=== PATIENT | female | born 1955 | race Hispanic/Latino ===

== ENCOUNTER 2017-10-18 12:40 | Outpatient (CLI) | payer OTHER ==
--- NOTE | 2017-10-20 15:10 | Vascular Lab Report ---
Right Lower Extremity Venous Duplex Study: Reason for Exam: Pain and swelling of the right lower extremity. Comments on the Right: All veins visualized are freely compressible without evidence of internal echogenicity. Flow is spontaneous and phasic throughout. No evidence of acute or chronic thrombus is seen in any of the vessels visualized. A soft tissue change in the right knee area is consistent with a Oliveros's cyst. Comments on the Left: A limited duplex study was done of the proximal veins of the left lower extremity. All veins visualized are freely compressible without evidence of internal echogenicity. Flow is spontaneous and phasic throughout. No evidence of acute or chronic thrombus is seen in any of the vessels visualized. Impression: No evidence of acute or chronic deep venous thrombosis in the right lower extremity. A soft tissue change in the right knee area is consistent with a Oliveros's cyst.
== END 2017-10-18 12:41 | disposition home or self-care (01) ==
LOC: VAS 12:40
PROVIDERS: ATTEND Internal Medicine
DX: M79.604 Pain in right leg (principal); M79.89 Other specified soft tissue disorders

== ENCOUNTER 2017-11-17 09:46 | Outpatient (CLI) | payer OTHER ==
--- NOTE | 2017-11-17 14:04 | Magnetic Resonance Report ---
MRI RIGHT KNEE WITHOUT CONTRAST: 11/17/17 11:00:00 CLINICAL: Right knee pain. No comparison imaging. TECHNIQUE: Sagittal proton density, sagittal T2 fat sat, coronal T1, coronal and axial proton density fat sat and sagittal gradient T2* sequences on a 1.5 [place] magnet. FINDINGS: The medial meniscus is intact and the lateral meniscus is intact. Normal marrow signal with no bone contusion or fracture. The ACL is abnormal with increased intrasubstance signal on all sequences. Intrasubstance signal is hyperintense on gradient echo and T2 fat-sat sequences. Intact fibers are identified at the margins of the ACL. The PCL is buckled but has normal signal with no evidence of tear. Small knee joint effusion and fluid in the gastrocnemius-semimembranosus bursa. The popliteal cyst measures 6.7 cm craniocaudal dimension and 1.2 cm AP dimension by 2.0 cm transverse dimension. The collateral ligaments are intact. Intact posterolateral corner structures including the popliteus tendon. The patella is intact with normal cartilage, tendon. IMPRESSION: 1. A chronic partial-thickness ACL tear. 2. No meniscal injury. 3. A small knee joint effusion and a 7 x 1 x 2 cm popliteal cyst. 4. Buckling of the PCL is a response to the chronic ACL tear.
== END 2017-11-17 09:47 | disposition home or self-care (01) ==
LOC: MRI 09:46
PROVIDERS: ATTEND Orthopaedic Surgery
DX: M71.21 Synovial cyst of popliteal space [Baker], right knee (principal)
CPT/HCPCS: 73721